=== PATIENT | male | born 1975 | race Caucasian/White ===

== ENCOUNTER 2017-10-16 18:32 | Emergency (ER) | payer OTHER ==
[2017-10-16 19:05] VITALS: RESP 20; TEMP 97.3
[2017-10-16] MEDS ORDERED: HYDROcodone/APAP 5-325MG 1 EACH TAB PO STA (19:44)
[2017-10-16] MEDS ORDERED: IBUPROFEN 800 MG TAB PO STA (19:44)
[2017-10-16 20:07] LABS: Appearance,Urine Clear (Clear); Bilirubin,Urine Negative (Negative); Blood,Urine Moderate (Negative); Color,Urine Yellow; Glucose,Urine (UA) Negative (Negative); Hyaline Casts,Urine 1 /lpf (0-2); Ketones,Urine Negative (Negative); Leukocyte Esterase,Urine Negative (Negative); Mucus,Urine Rare /hpf; Nitrite,Urine Negative (Negative); PH, Urine 5.5 (5.0-8.0); Protein,Urine Trace (Negative); RBC,Urine >182 /hpf (0-5); Specific Gravity,Urine 1.022 (1.001-1.035); Squamous Epithelial Cell,Urine <1 /hpf (0-4); Urobilinogen,Urine <2.0 mg/dL (<2.0); WBC,Urine 1 /hpf (0-5)
--- NOTE | 2017-10-16 20:18 | CT ---
EXAMINATION TYPE: CT abdomen pelvis wo con DATE OF EXAM: 10/16/2017 HISTORY: Left upper quadrant and left flank pain. CT DLP: 1213 mGycm. Automated Exposure Control for Dose Reduction was Utilized. TECHNIQUE: CT scan of the abdomen and pelvis is performed without oral or IV contrast. COMPARISON: NONE FINDINGS: Within the limitations of a non-contrast study, the following observations are made. LUNG BASES: No significant abnormality is appreciated. LIVER/GB: Liver is diffusely low dense consistent with fatty infiltration. PANCREAS: No significant abnormality is seen. SPLEEN: No significant abnormality is seen. ADRENALS: No significant abnormality is seen. KIDNEYS:. There is a 4 mm calculus lower pole level left kidney axial image 58. There is 3 mm calculu s in distal left ureter on axial image 129 causing mild left-sided pyelocaliectasis and proximal hydr oureter. No intraluminal calculus in poorly distended bladder is seen. No right-sided renal calculi o r hydronephrosis is evident. A few left-sided pelvic and lower abdominal phleboliths are seen. BOWEL: Normal-appearing appendix from cecum is incidentally noted. GENITAL ORGANS: No gross abnormality seen. LYMPH NODES: No greater than 1cm abdominal or pelvic lymph nodes are appreciated. OSSEOUS STRUCTURES: No significant abnormality is seen. OTHER: There is moderate-sized fat-containing left inguinal hernia incidentally noted. IMPRESSION: There is a 3 mm calculus distal left ureter causing mild left-sided hydronephrosis.
[2017-10-16] MEDS ORDERED: TAMSULOSIN 0.4 MG CAP.ER.24H PO STA (20:19)
--- NOTE | 2017-10-16 20:19 | ED ---
General Adult HPI - General Chief complaint: Abdominal Pain Stated complaint: lt sided flank pain Time Seen by Provider: 10/16/17 19:10 Source: patient, RN notes reviewed, old records reviewed Mode of arrival: ambulatory Limitations: no limitations - History of Present Illness Initial comments: This is a 42-year-old male to the ER for evaluation of pain. Left-sided flank pain or abdominal pain. Severe. Patient denies any history of kidney stones denies trauma no nausea no vomiting no recent diarrhea. No recent fevers. No travel history. Patient states he went to the bathroom that after getting up and felt severe pain in his left side left flank radiating into his groin. He states he was difficult to urinate, denies blood in his urine - Related Data Home Medications Medication Instructions Recorded Confirmed Cetirizine HCl [Zyrtec] 10 mg PO DAILY PRN 10/16/17 10/16/17 Hydrocodone/Acetaminophen [Lortab 10 mg PO Q6HR PRN 10/16/17 10/16/17 10 mg-300 mg/15 ml Elxr] Losartan Potassium [Cozaar] 25 mg PO DAILY 10/16/17 10/16/17 Propafenone Sr [Rythmol Sr] 225 mg PO BID 10/16/17 10/16/17 Rivaroxaban [Xarelto] 20 mg PO DAILY 10/16/17 10/16/17 Venlafaxine HCl [Effexor XR] 150 mg PO DAILY 10/16/17 10/16/17 Previous Rx's Medication Instructions Recorded HYDROcodone/APAP 5-325MG [[place] 1 tab PO Q6HR PRN #20 tab 10/16/17 5-325] Naproxen [Naprosyn] 500 mg PO Q12HR PRN #30 tab 10/16/17 Ondansetron Odt [Zofran ODT] 4 mg PO Q8HR PRN #10 tab 10/16/17 Tamsulosin [Flomax] 0.4 mg PO DAILY #7 cap 10/16/17 Allergies Allergy/AdvReac Type Severity Reaction Status Date / Time No Known Allergies Allergy Verified 10/16/17 19:26 Review of Systems ROS Statement: Those systems with pertinent positive or pertinent negative responses have been documented in the HPI. ROS Other: All systems not noted in ROS Statement are negative. Past Medical History Past Medical History: Atrial Fibrillation, Hypertension Additional Past Medical History / Comment(s): bulding disk in neck History of Any Multi-Drug Resistant Organisms: None Reported Past Surgical History: Ablation Additional Past Surgical History / Comment(s): cardiac ablasion x4 Past Psychological History: Anxiety, PTSD Smoking Status: Former smoker Past Alcohol Use History: None Reported Past Drug Use History: None Reported General Exam Limitations: no limitations General appearance: alert, in no apparent distress, anxious Head exam: Present: atraumatic, normocephalic, normal inspection Eye exam: Present: normal appearance, PERRL, EOMI. Absent: scleral icterus, conjunctival injection, periorbital swelling ENT exam: Present: normal exam, mucous membranes moist Neck exam: Present: normal inspection. Absent: tenderness, meningismus, lymphadenopathy Respiratory exam: Present: normal lung sounds bilaterally. Absent: respiratory distress, wheezes, rales, rhonchi, stridor Cardiovascular Exam: Present: regular rate, normal rhythm, normal heart sounds. Absent: systolic murmur, diastolic murmur, rubs, gallop, clicks GI/Abdominal exam: Present: soft, normal bowel sounds. Absent: distended, tenderness, guarding, rebound, rigid Extremities exam: Present: normal inspection, full ROM, normal capillary refill. Absent: tenderness, pedal edema, joint swelling, calf tenderness Back exam: Present: normal inspection Neurological exam: Present: alert, oriented X3, CN II-XII intact Psychiatric exam: Present: normal affect, normal mood Skin exam: Present: warm, dry, intact, normal color. Absent: rash Course Vital Signs 10/16/17 10/16/17 18:59 20:50 Temperature 97.3 F L Pulse Rate 63 54 L Respiratory 20 20 Rate Blood Pressure 158/98 146/96 O2 Sat by Pulse 99 98 Oximetry - Reevaluation(s) Reevaluation #1: Patient with adequate pain relief at this time Medical Decision Making - Medical Decision Making 40 female the ER for evaluation of severe left-sided flank pain. Positive left- sided kidney stone, patient will be discharged home with pain control - Lab Data Lab Results 10/16/17 Range/Units 19:51 Urine Color Yellow Urine Appearance Clear (Clear) Urine pH 5.5 (5.0-8.0) Ur Specific [place] 1.022 (1.001-1.035) Urine Protein Trace H (Negative) Urine Glucose (UA) Negative (Negative) Urine Ketones Negative (Negative) Urine Blood Moderate H (Negative) Urine Nitrite Negative (Negative) Urine Bilirubin Negative (Negative) Urine Urobilinogen <2.0 (<2.0) mg/dL Ur Leukocyte Esterase Negative (Negative) Urine RBC >182 H (0-5) /hpf Urine WBC 1 (0-5) /hpf Ur Squamous Epith Cells <1 (0-4) /hpf Hyaline Casts 1 (0-2) /lpf Urine Mucus Rare H (None) /hpf - Radiology Data Radiology results: report reviewed (CT of pelvis positive for left-sided ureteral kidney stone proximal to UVJ), image reviewed Disposition Clinical Impression: Left ureteral stone Disposition: HOME SELF-CARE Condition: Good Instructions: Kidney Stones (ED) Prescriptions: HYDROcodone/APAP 5-325MG [[place] 5-325] 1 tab PO Q6HR PRN #20 tab PRN Reason: Pain Naproxen [Naprosyn] 500 mg PO Q12HR PRN #30 tab PRN Reason: Pain Ondansetron Odt [Zofran ODT] 4 mg PO Q8HR PRN #10 tab PRN Reason: nausea/vomiting Tamsulosin [Flomax] 0.4 mg PO DAILY #7 cap Referrals: None,Stated [Primary Care Provider] - 1-2 days
[2017-10-16 20:53] VITALS: BP 146/96; PULSE 54
== END 2017-10-16 20:50 | disposition home or self-care (01) ==
LOC: EC 18:32
DX: N20.1 Calculus of ureter (principal); I48.91 Unspecified atrial fibrillation; I10 Essential (primary) hypertension; F41.9 Anxiety disorder, unspecified; F43.10 Post-traumatic stress disorder, unspecified; Z87.891 Personal history of nicotine dependence; Z79.01 Long term (current) use of anticoagulants; Z79.899 Other long term (current) drug therapy
CPT/HCPCS: 74176; 81001; 87077; 87086; 87186; 99284

== ENCOUNTER 2019-07-21 12:05 | Emergency (ER) | payer OTHER ==
[2019-07-21 12:09] VITALS: TEMP 98.8
[2019-07-21] MEDS ORDERED: MORPHINE SULFATE 4 MG/ML SYRINGE IV STA (13:20)
[2019-07-21] MEDS ORDERED: SODIUM CHLORIDE 0.9% 1,000 ML IV STA (13:20)
--- NOTE | 2019-07-21 13:20 | ED ---
Abdominal Pain HPI - General Chief Complaint: Abdominal Pain Stated Complaint: kidney stones Time Seen by Provider: 07/21/19 13:05 Source: patient, family Mode of arrival: ambulatory Limitations: no limitations - History of Present Illness Initial Comments: Patient is a 43-year-old male with history of kidney stones presenting to emergency Department with a chief complaint of kidney stone. Patient states that he has known kidney stones in the left kidney. Patient reports he was able to pass a kidney stone over the last 2 days which he was able to strain and sent it to the urologist for evaluation. Patient reports he has another stone that is larger in size. Dr. Martinez offered to remove the kidney stone with lithotripsy. Patient reports he would rather pass the stone rather than have a procedure. Patient reports the pain has increased in severity now. He reports the pain is located in the left flank region but now it is more in the left groin. Denies any testicular pain or swelling. Denies any penile discharge or swelling. Denies any nausea or vomiting chest pain or shortness of breath. - Related Data Home Medications Medication Instructions Recorded Confirmed Cetirizine HCl [Zyrtec] 10 mg PO DAILY 10/16/17 07/21/19 ARIPiprazole [Abilify] 5 mg PO DAILY 07/21/19 07/21/19 Apixaban [Eliquis] 5 mg PO BID 07/21/19 07/21/19 Levothyroxine Sodium [Synthroid] 50 mcg PO DAILY 07/21/19 07/21/19 Losartan Potassium [Cozaar] 50 mg PO DAILY@0530 07/21/19 07/21/19 RABEprazole SODIUM [Aciphex] 20 mg PO DAILY 07/21/19 07/21/19 Sotalol HCl [Sotalol] 160 mg PO BID 07/21/19 07/21/19 Testosterone Cypionate 100 mg IM SA 07/21/19 07/21/19 [Depo-Testosterone] Venlafaxine HCl [Venlafaxine HCl 225 mg PO DAILY 07/21/19 07/21/19 ER] hydrOXYzine PAMOATE [Vistaril] 25 mg PO QID 07/21/19 07/21/19 Previous Rx's Medication Instructions Recorded Tamsulosin [Flomax] 0.4 mg PO DAILY #7 cap 01/10/20 Allergies Allergy/AdvReac Type Severity Reaction Status Date / Time No Known Allergies Allergy Verified 07/21/19 14:06 Review of Systems ROS Statement: Those systems with pertinent positive or pertinent negative responses have been documented in the HPI. ROS Other: All systems not noted in ROS Statement are negative. Past Medical History Past Medical History: Atrial Fibrillation, Hypertension Additional Past Medical History / Comment(s): bulding disk in neck History of Any Multi-Drug Resistant Organisms: None Reported Past Surgical History: Ablation Additional Past Surgical History / Comment(s): cardiac ablasion x4 Past Psychological History: Anxiety, PTSD Smoking Status: Former smoker Past Alcohol Use History: None Reported Past Drug Use History: Marijuana General Exam Limitations: no limitations General appearance: alert, in no apparent distress, obese Head exam: Present: atraumatic, normocephalic, normal inspection Eye exam: Present: normal appearance, PERRL, EOMI Pupils: Present: normal accommodation ENT exam: Present: normal exam Neck exam: Present: normal inspection, full ROM Respiratory exam: Present: normal lung sounds bilaterally Cardiovascular Exam: Present: regular rate, normal rhythm, normal heart sounds GI/Abdominal exam: Present: soft, tenderness (Left groin region.). Absent: distended, hernia Extremities exam: Present: normal inspection, full ROM, normal capillary refill Back exam: Present: normal inspection, full ROM, CVA tenderness (L) (Very mild) Neurological exam: Present: alert, oriented X3 Psychiatric exam: Present: normal affect, normal mood Skin exam: Present: warm, dry, intact, normal color Course Vital Signs 07/21/19 12:07 Temperature 98.8 F Pulse Rate 87 Respiratory 18 Rate Blood Pressure 147/83 O2 Sat by Pulse 98 Oximetry Medical Decision Making - Medical Decision Making Patient is a 43-year-old male who of kidney stones presenting to emergency Department with a chief complaint of kidney stones. On exam patient has left flank pain radiating to the left groin region. Very mild left CVA tenderness. He recently passed a kidney stone. He knows there is a second one coming. The urologist sent him to the ED for symptomatic control. CBC CMP and UA are unremarkable. Ultrasound shows no signs of hydronephrosis but a possible right-sided nonobstructing 7 mm stone. Patient symptoms are under control. Patient has an appointment to see Dr. Martinez for a procedure to remove the stone. Strict return parameters were thoroughly discussed the patient was understanding and agreeable. Patient was requesting Flomax and he will be prescribed it. Case discussed with physician. - Lab Data Result diagrams: 07/21/19 13:14 07/21/19 13:14 Lab Results 07/21/19 07/21/19 07/21/19 Range/Units 13:14 13:14 13:14 WBC 8.0 (3.8-10.6) k/uL RBC 5.62 (4.30-5.90) m/uL Hgb 16.2 (13.0-17.5) gm/dL Hct 47.6 (39.0-53.0) % MCV 84.6 (80.0-100.0) fL MCH 28.7 (25.0-35.0) pg MCHC 34.0 (31.0-37.0) g/dL RDW 13.5 (11.5-15.5) % Plt Count 232 (150-450) k/uL Neutrophils % 71 % Lymphocytes % 15 % Monocytes % 10 % Eosinophils % 1 % Basophils % 2 % Neutrophils # 5.6 (1.3-7.7) k/uL Lymphocytes # 1.2 (1.0-4.8) k/uL Monocytes # 0.8 (0-1.0) k/uL Eosinophils # 0.1 (0-0.7) k/uL Basophils # 0.2 (0-0.2) k/uL Sodium 140 (137-145) mmol/L Potassium 4.3 (3.5-5.1) mmol/L Chloride 103 (98-107) mmol/L Carbon Dioxide 28 (22-30) mmol/L Anion Gap 9 mmol/L BUN 10 (9-20) mg/dL Creatinine 0.99 (0.66-1.25) mg/dL Est GFR (CKD-EPI)AfAm >90 (>60 ml/min/1.73 sqM) Est GFR (CKD-EPI)NonAf >90 (>60 ml/min/1.73 sqM) Glucose 121 H (74-99) mg/dL Calcium 9.9 (8.4-10.2) mg/dL Total Bilirubin 1.2 (0.2-1.3) mg/dL AST 40 (17-59) U/L ALT 58 H (4-49) U/L Alkaline Phosphatase 81 (38-126) U/L Total Protein 7.7 (6.3-8.2) g/dL Albumin 4.6 (3.5-5.0) g/dL Amylase 45 (30-110) U/L Lipase 112 (23-300) U/L Urine Color Yellow Urine Appearance Clear (Clear) Urine pH 7.5 (5.0-8.0) Ur Specific [place] 1.018 (1.001-1.035) Urine Protein Negative (Negative) Urine Glucose (UA) Negative (Negative) Urine Ketones Negative (Negative) Urine Blood Negative (Negative) Urine Nitrite Negative (Negative) Urine Bilirubin Negative (Negative) Urine Urobilinogen <2.0 (<2.0) mg/dL Ur Leukocyte Esterase Negative (Negative) Disposition Clinical Impression: Left flank pain Disposition: HOME SELF-CARE Condition: Stable Instructions (If sedation given, give patient instructions): Abdominal Pain (ED) Additional Instructions: Please take prescribed medication as directed. Please follow up with a urologist. Please return to emergency department if symptoms worsen. Prescriptions: Tamsulosin [Flomax] 0.4 mg PO DAILY #7 cap Is patient prescribed a controlled substance at d/c from ED?: No Referrals: [facility],Clinic [Primary Care Provider] - 1-2 days Time of Disposition: 15:06
[2019-07-21] MEDS ORDERED: ONDANSETRON 4 MG/2 ML VIAL IVP STA (13:28)
[2019-07-21] MEDS ORDERED: MORPHINE SULFATE 4 MG/ML SYRINGE IVP STA ×2 (13:37→14:30)
[2019-07-21 13:53] LABS: Basophils # (A) 0.2 k/uL (0-0.2); Basophils % (A) 2 %; Eosinophils # (A) 0.1 k/uL (0-0.7); Eosinophils % (A) 1 %; HCT 47.6 % (39.0-53.0); HGB 16.2 gm/dL (13.0-17.5); Lymphocytes # (A) 1.2 k/uL (1.0-4.8); Lymphocytes % (A) 15 %; MCH 28.7 pg (25.0-35.0); MCV 84.6 fL (80.0-100.0); Mean Platelet Volume 7.9; Monocytes # (A) 0.8 k/uL (0-1.0); Monocytes % (A) 10 %; Neutrophils # (A) 5.6 k/uL (1.3-7.7); Neutrophils % (A) 71 %; Platelet Count 232 k/uL (150-450); RBC 5.62 m/uL (4.30-5.90); RDW 13.5 % (11.5-15.5)
[2019-07-21 14:07] LABS: Appearance,Urine Clear (Clear); Bilirubin,Urine Negative (Negative); Blood,Urine Negative (Negative); Color,Urine Yellow; Glucose,Urine (UA) Negative (Negative); Ketones,Urine Negative (Negative); Leukocyte Esterase,Urine Negative (Negative); Nitrite,Urine Negative (Negative); PH, Urine 7.5 (5.0-8.0); Protein,Urine Negative (Negative); Specific Gravity,Urine 1.018 (1.001-1.035); Urobilinogen,Urine <2.0 mg/dL (<2.0)
[2019-07-21 14:14] LABS: ALT 58 U/L (4-49); AST 40 U/L (17-59); African American GFR (CKD) >90 (>60 ml/min/1.73 sqM); Albumin 4.6 g/dL (3.5-5.0); Alkaline Phosphatase 81 U/L (38-126); Amylase 45 U/L (30-110); Anion Gap 9 mmol/L; Blood Urea Nitrogen 10 mg/dL (9-20); Calcium 9.9 mg/dL (8.4-10.2); Carbon Dioxide 28 mmol/L (22-30); Chloride 103 mmol/L (98-107); Glucose 121 mg/dL (74-99); Non-African American GFR(CKD) >90 (>60 ml/min/1.73 sqM); Potassium 4.3 mmol/L (3.5-5.1); Sodium 140 mmol/L (137-145); Total Bilirubin 1.2 mg/dL (0.2-1.3); Total Protein 7.7 g/dL (6.3-8.2)
--- NOTE | 2019-07-21 14:43 | US ---
EXAMINATION TYPE: US kidneys/renal and bladder DATE OF EXAM: 07/21/2019 COMPARISON: CT abdomen and pelvis October 16, 2017 CLINICAL HISTORY: left flank pain. EXAM MEASUREMENTS: Right Kidney: 11.4 x 6.1 x 5.1 cm Left Kidney: 10.6 x 5.7 x 5.1 cm Patient states that he has bilateral kidney stones. Patient of large body habitus, technically difficult. Right Kidney: 0.6 x 0.4 x 0.6cm stone Left Kidney: no hydro, unable to identify any stones but small stones could easily be non-visualized by ultrasound Bladder: wnl Suboptimal study due to large body habitus per technologist. When scanning the right kidney adjacent liver is hyperechoic consistent with diffuse fatty infiltration. Technologist identified a 7 mm shado wing hyperechoic structure mid to lower pole right kidney could reflect new nonobstructing renal calc ulus not clearly seen on prior CT. Bladder not greatly distended. Bilateral distal ureteral jets not seen. No obvious calculi or hydronephrosis. There are 2 small calculi lower pole left kidney measurin g up to 4 mm in size not clearly seen on ultrasound. IMPRESSION: Previously visualized small lower pole left renal calculi on CT not clearly seen on today 's ultrasound. No hydronephrosis bilaterally. Possible new nonobstructing calculus right kidney.
[2019-07-21 15:11] VITALS: BP 148/71; PULSE 83; RESP 16
== END 2019-07-21 15:10 | disposition home or self-care (01) ==
LOC: EC 12:05
DX: R10.9 Unspecified abdominal pain (principal); I10 Essential (primary) hypertension; I48.91 Unspecified atrial fibrillation; Z79.01 Long term (current) use of anticoagulants; Z79.890 Hormone replacement therapy; Z79.899 Other long term (current) drug therapy; Z87.891 Personal history of nicotine dependence
CPT/HCPCS: 36415; 80053; 82150; 83690; 85025; 81003; 76770; 99284; 96374; 96375; 96376; 96361; J2270; J2405

== ENCOUNTER 2019-07-25 12:54 | Day surgery (SDC) | payer OTHER ==
[2019-07-24 11:48] VITALS: BMI 42.5
--- NOTE | 2019-07-24 20:40 | P.GSHP ---
History of Present Illness H&P Date: 07/24/19 43 yo male with left ureteral stones and persistent pain for a few weeks.A ct scan showed two left proximal ureteral stones. He wanted to try to passbut was having too muchpain Because he is on anticoagulation I will do a ureteroscopy/ He comes for left ureteroscopy and laser lithotripsy with possible stent for these painful stones The risks complications have been discussed and accepted Alternatives have been discussed too - Constitutional Constitutional: Denies chills, Denies fever - EENT Eyes: denies blurred vision, denies pain Ears, nose, mouth and throat: Denies headache, Denies sore throat - Cardiovascular Cardiovascular: Denies chest pain, Denies shortness of breath - Respiratory Respiratory: Denies cough, Denies 7 - Gastrointestinal Gastrointestinal: Denies abdominal pain, Denies diarrhea, Denies nausea, Denies vomiting - Genitourinary (Female) Genitourinary: Denies dysuria, Denies hematuria - Genitourinary (Male) Genitourinary: Denies dysuria, Denies hematuria - Musculoskeletal Musculoskeletal: Denies myalgias - Integumentary Integumentary: Denies pruritus, Denies rash - Neurological Neurological: Denies numbness, Denies weakness - Psychiatric Psychiatric: Denies anxiety, Denies depression - Endocrine Endocrine: Denies fatigue, Denies weight change Past Medical History Past Medical History: Atrial Fibrillation, GERD/Reflux, Hypertension, Musculoskeletal Disorder Additional Past Medical History / Comment(s): bulging disk in neck, back, kidney stone History of Any Multi-Drug Resistant Organisms: None Reported Past Surgical History: Cardiac Ablation Additional Past Surgical History / Comment(s): cardiac ablation x4, loop recor cj in chest Past Anesthesia/Blood Transfusion Reactions: Previous Problems w/ Anesthesia Additional Past Anesthesia/Blood Transfusion Reaction / Comment(s): sometimes hard to put under anesthesia Smoking Status: Former smoker Medications and Allergies Home Medications Medication Instructions Recorded Confirmed Type Cetirizine HCl [Zyrtec] 10 mg PO DAILY 10/16/17 07/24/19 History ARIPiprazole [Abilify] 5 mg PO DAILY 07/21/19 07/24/19 History Apixaban [Eliquis] 5 mg PO BID 07/21/19 07/24/19 History Levothyroxine Sodium [Synthroid] 50 mcg PO DAILY 07/21/19 07/24/19 History Losartan Potassium [Cozaar] 50 mg PO DAILY@0530 07/21/19 07/24/19 History RABEprazole SODIUM [Aciphex] 20 mg PO DAILY 07/21/19 07/24/19 History Sotalol HCl [Sotalol] 160 mg PO BID 07/21/19 07/24/19 History Tamsulosin [Flomax] 0.4 mg PO DAILY #7 cap 07/21/19 07/24/19 Rx Testosterone Cypionate 100 mg IM SA 07/21/19 07/24/19 History [Depo-Testosterone] Venlafaxine HCl [Venlafaxine HCl 225 mg PO DAILY 07/21/19 07/24/19 History ER] hydrOXYzine PAMOATE [Vistaril] 25 mg PO QID PRN 07/21/19 07/24/19 History Allergies Allergy/AdvReac Type Severity Reaction Status Date / Time No Known Allergies Allergy Verified 07/24/19 11:45 Surgical - Exam - General well developed, well nourished, moderate distress - Eyes PERRL - Neck no masses, trachea midline - Respiratory normal expansion, normal respiratory effort - Abdomen Abdomen: soft, non tender - Genitourinary normal penis with no external lesions, testicles present - Integumentary no rash, no growths - Neurologic normal coordination, normal sensation - Musculoskeletal normal gait, normal posture - Psychiatric oriented to time, oriented to person, oriented to place, speech is normal, memory intact Assessment and Plan Assessment: Impression: Left uretral calculi Plan: left ureteroscopy with laser lithotripsy
[~2019-07-25 12:54] MED LIST: DEXAMETHASONE SOD PHOSPHATE 10 MG/ML 1 ML VIAL IV ONE; HYDROmorphone 0.5 MG/0.5 ML SYRINGE IVP PRN; LACTATED RINGERS 1,000 ML IV SCH; LIDOCAINE 1% 20 ML VIAL (10MG/ML) FOR IV START INTRADERMA PRN; MIDAZOLAM 2 MG/2 ML VIAL IV PRN; ONDANSETRON 4 MG/2 ML VIAL IVP ONE; SCOPOLAMINE 1.5MG/72HR PATCH TRANSDERM ONE
--- NOTE | 2019-07-25 13:18 | XR ---
EXAMINATION TYPE: XR KUB DATE OF EXAM: 07/25/2019 1:05 PM CLINICAL HISTORY: Preoperative examination for ureteral calculus TECHNIQUE: Single supine KUB image of the abdomen is obtained. COMPARISON: None. FINDINGS: 6 mm calculus is seen adjacent to the L3 transverse process. This is along the course of th e mid left ureter. Probable right renal calculus measures 6 mm and overlies the expected region of th e right renal shadow. Stool does overlie the renal shadows limiting evaluation. Phleboliths are seen within the left hemipelvis that are centrally lucent. Osseous structures are grossly intact. No dilat ed bowel. IMPRESSION: 6 mm calculus along the course of the mid left ureter. Probable 6 mm right renal calculus .
[2019-07-25] MEDS ORDERED: KETOROLAC 30 MG/ML 1 ML VIAL ONE (14:54)
[2019-07-25] MEDS ORDERED: MIDAZOLAM 2 MG/2 ML VIAL ONE (14:54)
[2019-07-25] MEDS ORDERED: PROPOFOL 10 MG/ML 20 ML VIAL IV ONE (14:54)
[2019-07-25] MEDS ORDERED: fentaNYL (PF) 50 MCG/ML 2 ML AMP ONE (14:54)
[2019-07-25] MEDS ORDERED: SUCCINYLCHOLINE CHLORIDE VIAL 200 MG/10 ML VIAL IV ONE (14:54)
[2019-07-25] MEDS ORDERED: LIDOCAINE 1% INJ 10MG/ML (20 ML MDV) ONE (14:54)
[2019-07-25] MEDS ORDERED: ePHEDrine SULFATE/0.9% NACL/PF 50 MG/5 ML SYRINGE IV ONE (14:54)
[2019-07-25] MEDS ORDERED: ceFAZolin 1,000 MG VIAL IVPB ONE (15:13)
[2019-07-25] MEDS ORDERED: IOPAMIDOL-300 50ML BTL MISCELLANE ONE (15:17)
[2019-07-25] MEDS ORDERED: LACTATED RINGERS 1,000 ML IV ONE (15:41)
--- NOTE | 2019-07-25 15:53 | P.OP ---
Date of Procedure: 07/25/19 Preoperative Diagnosis: Left ureteral calculus Postoperative Diagnosis: Same Procedure(s) Performed: Cystoscopy, left retrograde pyelogram, left ureteroscopy laser lithotripsy, placement of 6 x 26 stent Anesthesia: ARLEY Surgeon: Jeff Grajeda Estimated Blood Loss (ml): 5 Pathology: other (Stone) Condition: stable Disposition: PACU Indications for Procedure: The patient is 43. He has a 6 mm obstructing ureteral stone. It continues to cause pain. He comes for ureteroscopy laser lithotripsy. The stone was seen in the proximal ureter on the KUB and fluoroscopy Description of Procedure: Patient brought operating suite given general anesthesia placed lithotomy position with sterile prep and drape. Cystoscopy Foroblique lens and 22-[place] sheath identifies normal urethra. The prostate is not obstructing. The left renal orifice is identified and intubated with an 8 cone-tip catheter retrograde pyelograms performed there is no stones in the distal ureter. There is a stone in the proximal ureter. 35 wires passed up the ureter into the renal pelvis. Over the wires and passed a 06-15-Kitvkl reentry sheath. The inner sheath is removed. Through the outer sheath flexible ureteroscope was passed up into the upper ureter. The stone was seen. Is quite edematous around the stone. With the 200 laser probe and 4 W of energy the stone was broken into tiny pieces. The fragments are basketed and removed. I do a pullout ureteroscopy and see no remaining stone. A stent will be placed due to edema. An 035 wires and passed through the cystoscope which was reintroduced the bladder. Over the wires and passed a 6 x 26 double-J cath that coils in the renal pelvis and the bladder bladder strain the patient awake and returned recovery in good condition. He tolerated procedure well be discharged home upon recovery. He'll follow in the office in one week for stent removal
[2019-07-25 16:05] VITALS: TEMP 97.3
--- NOTE | 2019-07-25 16:05 | FL ---
EXAMINATION TYPE: FL urography retrograde DATE OF EXAM: 07/25/2019 COMPARISON: NONE HISTORY: Fluoroscopic documentation during left ureteral lithotripsy TECHNIQUE: Fluoroscopy. FINDINGS: Fluoroscopic guidance was provided during procedure performed by Dr. Grajeda. A total of 1 minute and 13 seconds of fluoroscopic time was utilized during the procedure and 1 spot images was ac quired during left ureteral lithotripsy. IMPRESSION: As Above.
[2019-07-25 16:23] VITALS: RESP 16
[2019-07-25 16:52] VITALS: BP 117/82; PULSE 99
== END 2019-07-25 17:00 | disposition home or self-care (01) ==
LOC: OR 12:54
PROVIDERS: ATTEND Urology
DX: N20.1 Calculus of ureter (principal); I48.91 Unspecified atrial fibrillation; K21.9 Gastro-esophageal reflux disease without esophagitis; I10 Essential (primary) hypertension; M50.20 Other cervical disc displacement, unspecified cervical region; M51.9 Unspecified thoracic, thoracolumbar and lumbosacral intervertebral disc disorder; G47.33 Obstructive sleep apnea (adult) (pediatric); E66.01 Morbid (severe) obesity due to excess calories; Z68.41 Body mass index [BMI] 40.0-44.9, adult; Z98.890 Other specified postprocedural states; Z95.818 Presence of other cardiac implants and grafts; Z91.89 Other specified personal risk factors, not elsewhere classified; Z87.891 Personal history of nicotine dependence; Z79.899 Other long term (current) drug therapy; Z79.01 Long term (current) use of anticoagulants; Z79.890 Hormone replacement therapy; Z99.89 Dependence on other enabling machines and devices
CPT/HCPCS: 82365; 74420; 74018; 52356; C2625; C1758; C1769; J2250; J0330; J1100; J2405; J0690; J2001; J3010; J1885; J2704; Q9967

== ENCOUNTER 2020-09-02 08:44 | Day surgery (SDC) | payer OTHER ==
[2020-08-28 12:40] VITALS: BMI 39.4
[~2020-09-02 08:44] MED LIST changes: -DEXAMETHASONE SOD PHOSPHATE 10 MG/ML 1 ML VIAL IV ONE; -HYDROmorphone 0.5 MG/0.5 ML SYRINGE IVP PRN; +LIDOCAINE 1% (10MG/ML) FOR IV START INTRADERMA PRN; -LIDOCAINE 1% 20 ML VIAL (10MG/ML) FOR IV START INTRADERMA PRN; -MIDAZOLAM 2 MG/2 ML VIAL IV PRN; -ONDANSETRON 4 MG/2 ML VIAL IVP ONE; -SCOPOLAMINE 1.5MG/72HR PATCH TRANSDERM ONE
[2020-09-02 09:05] VITALS: TEMP 97.4
[2020-09-02] MEDS ORDERED: PROPOFOL 10 MG/ML 20 ML VIAL IV ONE (09:23)
[2020-09-02] MEDS ORDERED: MIDAZOLAM 2 MG/2 ML VIAL ONE (09:23)
[2020-09-02] MEDS ORDERED: LIDOCAINE 1% INJ 10MG/ML (20 ML MDV) ONE (09:23)
[2020-09-02] MEDS ORDERED: fentaNYL (PF) 50 MCG/ML 2 ML AMP ONE (09:23)
--- NOTE | 2020-09-02 09:50 | P.PCN ---
Date of Procedure: 09/02/20 Description of Procedure: BRIEF HISTORY: Patient is a 44-year-old male presenting for outpatient colonoscopy for evaluation of family history of polyps. No prior colonoscopy. No change in bowel habit. He has reported intermittent bright red blood per rectum. PROCEDURE PERFORMED: Colonoscopy with polypectomy. PREOPERATIVE DIAGNOSIS: Family history of colon polyps, bright blood per rectum, no prior colonoscopy. ESTIMATED BLOOD LOSS: Minimal. IV sedation per Anesthesia. PROCEDURE: After informed consent was obtained, the patient, was brought into the endoscopy unit. IV sedation was administered by Anesthesia under continuous monitoring. Digital rectal examination was normal. Initially the Olympus CF-190 flexible video colonoscope was then inserted in the rectum, gradually advanced into the cecum without any difficulty. Careful examination was performed as the scope was gradually being withdrawn. Ileocecal valve and the appendiceal orifice were visualized and appeared normal. Prep was excellent. Mucosa of the cecum, ascending colon, transverse colon, descending colon, sigmoid colon, and rectum appeared normal. 2 diminutive polyps measuring 1 mm in size removed from the descending colon and sigmoid colon with cold forcep polypectomy. Sessile 3 mm rectal polyp removed with cold snare polypectomy. Retroflexion was performed in the rectum and no lesions were seen, low-grade internal hemorrhoids. The patient tolerated the procedure well. IMPRESSION: Sessile rectal polyp removed with cold snare polypectomy. 2 diminutive polyps removed with cold forceps from the descending colon and sigmoid colon. Internal hemorrhoids RECOMMENDATIONS: Findings of this examination were discussed with the patient and his family. Okay to resume diet. Okay to resume medications. Await pathology from polypectomies. Recommend repeat colonoscopy in 5 years pending pathology from polypectomies.
[2020-09-02 09:52] VITALS: PULSE 66
[2020-09-02 10:08] VITALS: BP 135/74; RESP 18
== END 2020-09-02 10:43 | disposition home or self-care (01) ==
LOC: ORWHC2ENDO 08:44
PROVIDERS: ATTEND Internal Medicine
DX: D12.4 Benign neoplasm of descending colon (principal); D12.5 Benign neoplasm of sigmoid colon; D12.8 Benign neoplasm of rectum; K64.8 Other hemorrhoids; I48.91 Unspecified atrial fibrillation; M54.2 Cervicalgia; Z79.01 Long term (current) use of anticoagulants; Z79.890 Hormone replacement therapy; Z79.899 Other long term (current) drug therapy; Z98.890 Other specified postprocedural states; Z87.898 Personal history of other specified conditions; Z83.71 Family history of colonic polyps
CPT/HCPCS: 88305; 45380; 45385; J2250; J2001; J3010; J2704

== ENCOUNTER → 2021-07-08 | Outpatient (CLI) | payer OTHER ==
--- NOTE | 2021-07-08 11:54 | XR ---
EXAMINATION TYPE: XR KUB DATE OF EXAM: 07/08/2021 HISTORY: Pain Comparison: 07/25/2019Single KUB is submitted for interpretation. Findings: Right renal calculi: None Visualized. Right ureteral calculi: None Visualized. Left renal calculi: None Visualized. Left ureteral calculi: None Visualized. Pelvic calcifications: Pelvic calcifications could reflect phlebolith versus distal ureteral calculu s. Bowel gas pattern is unremarkable. No free air. No mass effects. IMPRESSION: 1.
== END | disposition home or self-care (01) ==
LOC: RADXRMAIN 11:31
PROVIDERS: ATTEND Urology
DX: R10.9 Unspecified abdominal pain (principal)
CPT/HCPCS: 74018

== ENCOUNTER 2023-10-12 10:07 | Day surgery (SDC) | payer OTHER ==
[2023-10-12] MEDS: LACTATED RINGERS 1,000 ML IV SCH (10:45)
[2023-10-12 11:24] VITALS: RESP 18; TEMP 97.5
[2023-10-12] MEDS ORDERED: PROPOFOL 10 MG/ML 20 ML VIAL IV ONE (11:38)
--- NOTE | 2023-10-12 11:47 | P.PCN ---
Date of Procedure: 10/12/23 Procedure(s) Performed: BRIEF HISTORY: Patient is a 48-year-old, pleasant, white male with long-standing history of GERD currently maintained on AcipHex 20 mg twice daily but has heartburn and abdominal pain for the last few months.. PROCEDURE PERFORMED: Esophagogastroduodenoscopywith biopsy PREOPERATIVE DIAGNOSIS: Long-standing history of GERD. IV sedation per anesthesia. PROCEDURE: After informed consent was obtained, the patient was brought into the endoscopy unit. IV sedation was administered by Anesthesia under continuous monitoring. Initially the Olympus GIF-140 video endoscope was inserted into the mouth. Esophagus intubated without any difficulty. It was gradually advanced into the stomach and duodenum and carefully examined. The bulb and the second part of the duodenum appeared normal. The scope at this time was withdrawn to the stomach, adequately insufflated with air, and upon careful examination, mucosa of the antrum,mild diffuse gastritis and biopsies were done from this area. Mucosa of the body, cardia and the fundus appeared normal. multiple small gastric polyps noted in the gastric body which were biopsied.The scope was then withdrawn into the esophagus. Small hiatal hernia noted.The GE junction was located at 44 cm from the incisors. there was 2 tongues of Dixon's appearing mucosa extending 3 mm proximal to the GE junction which was biopsied.The esophagus appeared normal. There were no erosions or ulcerations seen and the patient tolerated the procedure well. IMPRESSION: 1. Mild antral gastritis. 2..Multiple small gastric polyps 3. Small hiatal hernia 4. 2 tongues of Dixon's appearing mucosa proximal to the GE junction status post biopsy RECOMMENDATIONS: The findings of this examination were discussed with the patient as well as his family.. he was advised to follow with the biopsy results. if the biopsy confirms the presence of Dixon's esophagus, recommended repeat upper endoscopy in 3 years. Advised to stop the AcipHex and will change it to Protonix 40 mg twice daily and follow antrum reflux measures. Follow up in office in 4 weeks.
[2023-10-12 12:07] VITALS: BP 123/83; PULSE 62
== END 2023-10-12 12:26 | disposition home or self-care (01) ==
LOC: ORWHC2ENDO 10:07
PROVIDERS: ATTEND Internal Medicine Gastroenterology
DX: K31.7 Polyp of stomach and duodenum (principal); K31.9 Disease of stomach and duodenum, unspecified; K22.70 Barrett's esophagus without dysplasia; K21.00 Gastro-esophageal reflux disease with esophagitis, without bleeding; K44.9 Diaphragmatic hernia without obstruction or gangrene; I48.91 Unspecified atrial fibrillation; F17.290 Nicotine dependence, other tobacco product, uncomplicated; F41.9 Anxiety disorder, unspecified; F43.10 Post-traumatic stress disorder, unspecified; F12.90 Cannabis use, unspecified, uncomplicated; Z79.899 Other long term (current) drug therapy; Z98.890 Other specified postprocedural states
CPT/HCPCS: 88305; 43239; J2704